=== PATIENT | female | born 1985 | race Caucasian/White ===

== ENCOUNTER 2016-12-20 15:24 | Observation (INO) ==
[2016-12-20] MEDS ORDERED: IOPAMIDOL 100 ML BOTTLE IJ ONE (15:25)
[2016-12-20] MEDS ORDERED: ONDANSETRON 4 MG/2 ML VIAL IV ONE (16:05)
[2016-12-20] MEDS ORDERED: KETOROLAC 30 MG/ML VIAL IV ONE (16:05)
[2016-12-20] MEDS ORDERED: LEVOFLOXACIN 750 MG/150 ML BAG IV ONE (16:05)
[2016-12-20] MEDS ORDERED: 0.9 % SODIUM CHLORIDE 1,000 ML IV ONE ×2 (16:05→17:54)
[2016-12-20 16:41] LABS: Basophils # (Auto) 0 K/mcL (0.0-0.3); Basophils % (Auto) 0 % (0.0-2.0); Eosinophils # (Auto) 0.4 K/mcL (0.0-0.7); Lymphocytes # (Auto) 0.3 K/mcL (1.5-4.8); Lymphocytes % (Auto) 4.1 % (15.5-49.0); Mean Cell Volume 77.5 fL (80.0-100.0); Mean Corpuscular Hemoglobin 26.3 pg (26.0-34.0); Monocytes # (Auto) 0.2 K/mcL (0.1-0.9); Monocytes % (Auto) 3.9 % (1.0-12.0); Platelet Count 175 K/mcL (140-440); Red Cell Distribution Width 15.1 % (11.5-14.5)
[2016-12-20 16:49] LABS: ALT/SGPT 17 U/l (0-40); Albumin 3.7 gm/dL (3.2-5.2); Albumin/Globulin Ratio 1.3 (1.0-2.3); Alkaline Phosphatase 77 U/L (39-117); Blood Urea Nitrogen 9 mg/dl (6-20); Lipase 17 U/L (7-60)
[2016-12-20 17:05] LABS: Appearance,Urine CLEAR; Bacteria,Urine MOD /hpf (0); Bilirubin,Urine NEG (NEG); Color,Urine STRAW; Glucose,Urine (UA) NEGATIVE (NEG); Leukocyte Esterase,Urine 75 /uL (NEG); Nitrate,Urine NEG (NEG); Protein,Urine NEG (NEG); Specific Gravity,Urine 1.004 (1.000-1.035); Urine Blood NEG mg/dL (<0.03); Urine RBC < 1 /hpf (0-1); Urine Squamous Epithelial Cell 2 /hpf (0-4); Urine WBC 1 /hpf (0-4); Urobilinogen,Urine NEG (NEG)
[2016-12-20] MEDS ORDERED: ACETAMINOPHEN 325 MG TABLET PO ONE (17:44)
--- NOTE | 2016-12-20 18:21 | Emergency Department Note ---
General Adult HPI - General Chief complaint: Weakness Stated complaint: Weakness, fever, chills, nausea Time Seen by Provider: 12/20/16 16:03 Source: patient Mode of arrival: ambulatory Limitations: no limitations - History of Present Illness HPI Narrative: 29-year-old female with a four-day history of nausea vomiting and fever and chills. No diarrhea. She was recently seen by Dr. Fabian and plan for surgery in 2 days however in getting that workup done it was noted she had a UTI and Dr. Fabian started her on antibiotics. Unclear which catabolic since is. No blood in her stool or vomit. Complaining of malaise and myalgias now. Also complaining of headaches. - Related Data Home Medications Medication Instructions Recorded Confirmed HYDROcodone/APAP 5/325MG [[place] 1 - 2 tab PO HS 12/16/16 12/16/16 5/325Mg] Previous Rx's Medication Instructions Recorded Etodolac [Lodine] 400 mg PO BIDP PRN #20 tablet 10/09/16 Allergies Allergy/AdvReac Type Severity Reaction Status Date / Time iodine Allergy Mild Rash Verified 12/20/16 14:28 Review of Systems All systems ED: reviewed and negative except as stated. Past Medical History - Past Medical History Attestation: Yes: The following information was validated with the patient. Medical history: Reports: no medical history Surgical history ED: Reports: appendectomy, orthopedic, other (knee and foot), other (duodenal atresia) PROJECT DEVELOPMENT COORDINATOR history: Reports: endometriosis - Social History smoking status: Never smoker Alcohol use: Reports: Unknown Drug use: Reports: unknown Physical Exam Overweight female. Febrile and mildly diaphoretic - mild distress. Normocephalic atraumatic. Conjunctiva clear sclerae white and anicteric. No nasal discharge or congestion. Oropharynx is pink and moist. Neck supple without lymphadenopathy or thyromegaly. Heart is regular rate and rhythm no murmurs appreciated. Lungs are clear to auscultation bilaterally without wheezes rales rhonchi or respiratory distress. Abdomen soft mildly diffusely tender but no point tenderness. No McBurney's point tenderness or Torres's sign. However some bilateral CVA tenderness. No pedal edema +2 radial pulse. - General Limitations: no limitations Course Vital Signs Temperature 101.7 F H 12/20/16 15:26 Pulse Rate 117 H 12/20/16 15:26 Respiratory Rate 18 12/20/16 15:26 Blood Pressure 126/82 12/20/16 15:26 Pulse Oximetry (%) 100 12/20/16 15:26 Temperature 102.1 F H 12/20/16 17:49 Pulse Rate 99 H 12/20/16 19:31 Respiratory Rate 24 12/20/16 19:31 Blood Pressure 120/67 12/20/16 19:31 Pulse Oximetry (%) 100 12/20/16 19:31 Medical Decision Making - Lab Data Lab results reviewed: Yes I reviewed the patient's lab results. Result diagrams: 12/20/16 16:05 12/20/16 16:05 Lab Results 12/20/16 12/20/16 12/20/16 Range/Units 16:05 16:05 16:05 WBC 6.3 (4.5-11.0) K/mcL RBC 4.70 (4.00-5.20) M/mcL Hgb 12.4 (12.0-15.0) g/dL Hct 36.4 (36.0-48.0) % POC Hct 35.0 L (36.0-48.0) % MCV 77.5 L (80.0-100.0) fL MCH 26.3 (26.0-34.0) pg MCHC 34.0 (31.0-36.0) g/dL RDW 15.1 H (11.5-14.5) % Plt Count 175 (140-440) K/mcL MPV 9.1 (7.4-10.4) fL Gran % 86.0 H (38.0-78.0) % Lymph % (Auto) 4.1 L (15.5-49.0) % [place] % (Auto) 3.9 (1.0-12.0) % Eos % (Auto) 6.0 (0.0-7.0) % Baso % (Auto) 0 (0.0-2.0) % Gran # 5.5 (1.8-8.0) K/mcL Lymph # 0.3 L (1.5-4.8) K/mcL [place] # 0.2 (0.1-0.9) K/mcL Eos # 0.4 (0.0-0.7) K/mcL Baso # 0 (0.0-0.3) K/mcL VBG Lactic Acid 1.8 (0.5-2.2) mmol/L POC Sodium 138 (133-145) mmol/L Sodium 131 L (133-145) mmol/L POC Potassium 3.8 (3.3-5.1) mmol/L Potassium 3.9 (3.3-5.1) mmol/L POC Chloride 97 (96-108) mmol/L Chloride 96 (96-108) mmol/L Carbon Dioxide 20 L (22-30) mmol/L POC Total CO2 20 L (22-30) mmol/L Anion Gap 15.0 (8-16) POC BUN 7 (6-20) mg/dl BUN 9 (6-20) mg/dl Creatinine 0.9 (0.6-1.1) mg/dl POC Creatinine 0.9 (0.6-1.1) mg/dl GFR Calculation 85 Glucose 107 H (70-105) mg/dL POC Glucose 95 (70-105) mg/dL Calcium 8.6 (8.6-10.4) mg/dl POC WB Ioniz Calcium 1.10 L (1.16-1.32) mmol/L Total Bilirubin 0.3 (0.0-1.0) mg/dL AST 17 (0-37) U/l ALT 17 (0-40) U/l Alkaline Phosphatase 77 (39-117) U/L Total Protein 6.6 (5.9-8.4) gm/dL Albumin 3.7 (3.2-5.2) gm/dL Globulin 2.9 (2.2-3.7) gm/dL Albumin/Globulin Ratio 1.3 (1.0-2.3) Lipase 17 (7-60) U/L Urine Color Urine Appearance Urine pH (5.0-9.0) Ur Specific Lee (1.000-1.035) Urine Protein (NEG) mg/dL Urine Glucose (UA) (NEG) mg/dL Urine Ketones (NEG) mg/dL Urine Occult Blood (<0.03) mg/dL Urine Nitrate (NEG) Urine Bilirubin (NEG) mg/dL Urine Urobilinogen (NEG) mg/dL Ur Leukocyte Esterase (NEG) /uL Urine RBC (0-1) /hpf Urine WBC (0-4) /hpf Ur Squamous Epith Cells (0-4) /hpf Urine Bacteria (0) /hpf Ur Culture Indicated? 12/20/16 Range/Units 16:26 WBC (4.5-11.0) K/mcL RBC (4.00-5.20) M/mcL Hgb (12.0-15.0) g/dL Hct (36.0-48.0) % POC Hct (36.0-48.0) % MCV (80.0-100.0) fL MCH (26.0-34.0) pg MCHC (31.0-36.0) g/dL RDW (11.5-14.5) % Plt Count (140-440) K/mcL MPV (7.4-10.4) fL Gran % (38.0-78.0) % Lymph % (Auto) (15.5-49.0) % [place] % (Auto) (1.0-12.0) % Eos % (Auto) (0.0-7.0) % Baso % (Auto) (0.0-2.0) % Gran # (1.8-8.0) K/mcL Lymph # (1.5-4.8) K/mcL [place] # (0.1-0.9) K/mcL Eos # (0.0-0.7) K/mcL Baso # (0.0-0.3) K/mcL VBG Lactic Acid (0.5-2.2) mmol/L POC Sodium (133-145) mmol/L Sodium (133-145) mmol/L POC Potassium (3.3-5.1) mmol/L Potassium (3.3-5.1) mmol/L POC Chloride (96-108) mmol/L Chloride (96-108) mmol/L Carbon Dioxide (22-30) mmol/L POC Total CO2 (22-30) mmol/L Anion Gap (8-16) POC BUN (6-20) mg/dl BUN (6-20) mg/dl Creatinine (0.6-1.1) mg/dl POC Creatinine (0.6-1.1) mg/dl GFR Calculation Glucose (70-105) mg/dL POC Glucose (70-105) mg/dL Calcium (8.6-10.4) mg/dl POC WB Ioniz Calcium (1.16-1.32) mmol/L Total Bilirubin (0.0-1.0) mg/dL AST (0-37) U/l ALT (0-40) U/l Alkaline Phosphatase (39-117) U/L Total Protein (5.9-8.4) gm/dL Albumin (3.2-5.2) gm/dL Globulin (2.2-3.7) gm/dL Albumin/Globulin Ratio (1.0-2.3) Lipase (7-60) U/L Urine Color Straw Urine Appearance Clear Urine pH 6.0 (5.0-9.0) Ur Specific Lee 1.004 (1.000-1.035) Urine Protein Neg (NEG) mg/dL Urine Glucose (UA) Negative (NEG) mg/dL Urine Ketones Neg (NEG) mg/dL Urine Occult Blood Neg (<0.03) mg/dL Urine Nitrate Neg (NEG) Urine Bilirubin Neg (NEG) mg/dL Urine Urobilinogen Neg (NEG) mg/dL Ur Leukocyte Esterase 75 A (NEG) /uL Urine RBC < 1 (0-1) /hpf Urine WBC 1 (0-4) /hpf Ur Squamous Epith Cells 2 (0-4) /hpf Urine Bacteria Mod A (0) /hpf Ur Culture Indicated? Yes - Radiology Data Radiology results reviewed: Yes I reviewed the patient's radiology results. CT scan of the abdomen and pelvis with contrast is read as normal by [facility] Disposition Clinical Impression: Pyelonephritis Summary: Clinically patient has pyelonephritis with classic findings of fever, evidence of UTI and back pain. However CT scan and laboratory relatively benign. Differential diagnosis includes fever from occult infection as well, but lungs are clear and white count is normal In light of the fact that she is unable to keep anything down, I do think she needs to come in for IV fluid rehydration and IV antibiotics- she has clearly already failed outpatient antibiotic therapy. I discussed her situation with Dr. Arango, she agreed to accept the patient for observation Disposition: Xfer As Outpt/Obs ([facility]) Condition: Fair Referrals: Ken Calderon MD [Primary Care Provider] - Galina Arango MD [Physician] -
[2016-12-20] MEDS: HYDROmorphone 2 MG/ML SYRINGE IV PRN ×3 (18:41→21:51)
[2016-12-20] MEDS ORDERED: ONDANSETRON 4 MG/2 ML VIAL IV PRN (19:55)
[2016-12-20] MEDS ORDERED: ACETAMINOPHEN 325 MG TABLET PO PRN (19:55)
[2016-12-20] MEDS ORDERED: IBUPROFEN 600 MG TABLET PO PRN (19:55)
--- NOTE | 2016-12-20 22:25 | Internal Med History&Physical ---
Medical - H&P: [facility] Patient information: Note initiated : 12/20/16 at 10:20 pm Service Date, if different from initiated Date: [] Patient: Marcy Ames 31 y/o F admitted on 12/20/16 for Weakness, fever, chills, nausea. 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 She has had some issues with torn ligaments in her knee and is scheduled to have repair with Dr. Fabian on Thursday. She had preoperative lab work done and was told she had a urinary tract infection and was prescribed a three-day course of Bactrim. She did not notice any urinary tract symptoms prior to this. 3 days prior to admission, she began her Bactrim course and noted that she had dizziness, nausea and vomiting after taking her Bactrim. She had subjective fevers and chills. She was also taking an [id number] homeopathic medication at home. Today she had rigors and worsening back abdominal pain and presented to the ER. Her vomiting has resolved. She denies any history of UTI or kidney problems. Review of systems: Please see the HPI. Otherwise a comprehensive review of systems is negative or noncontributory to the chief complaint. 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 I do not see a full list in the current EMR. 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 She and her daughter and parents all live in one home. She is a full code and her mother, Mariah John, is her surrogate medical decision maker. She does not have a primary care physician. She is a never smoker. She does not use alcohol or recreational drugs. Medical - H&P: Meds Home Medications Medication Instructions Recorded Confirmed Type Etodolac [Lodine] 400 mg PO BIDP PRN #20 tablet 10/09/16 12/20/16 Rx Allergies Allergy/AdvReac Type Severity Reaction Status Date / Time iodine Allergy Mild Rash Verified 12/20/16 14:28 Medical - H&P: Exam - Constitutional Vitals: Temp Pulse Resp BP Pulse Ox 99.6 F 102 H 17 130/55 100 12/20/16 20:08 12/20/16 20:08 12/20/16 20:08 12/20/16 20:08 12/20/16 20:08 General appearance: no acute distress Exam: flushed - Head Head exam: Present: atraumatic, normocephalic - Eye Eye exam: Present: EOMI, PERRL. Absent: conjunctival injection, scleral icterus - ENT ENT exam: Present: mucous membranes dry, normal oropharynx - Neck Neck exam: Present: full ROM. Absent: lymphadenopathy, meningismus, thyromegaly - Respiratory Respiratory exam: Present: CTAB. Absent: accessory muscle use - Cardiovascular Cardiovascular exam: Present: normal rate and rhythm. Absent: systolic murmur - GI/Abdominal GI/Abdominal exam: Present: normal bowel sounds, soft Additional comments: diffusely tender throughout without peritoneal signs - Rectal Rectal exam: Present: deferred - Extremities Exam Extremities exam: Absent: pedal edema Additional comments: no clubbing or cyanosis - Back Exam Additional comments: She has pain everywhere I touch her back even with the slightest touch. It is not localized to the CVA region. - Neurological Exam Neurological exam: Present: alert, CN II-XII intact, oriented X3. Absent: motor sensory deficit - Psychiatric Psychiatric exam: Present: normal affect, normal mood - Skin Skin exam: Present: dry, warm Medical - H&P: Reslt - Labs CBC & Chem 7: 12/20/16 16:05 12/20/16 16:05 Medical - H&P: A/P - Narrative A/P Narrative: * Sepsis likely secondary to pyelonephritis -likely has Bactrim-resistant pathogen; no pyuria on UA may represent partial treatment. Low threshold for considering other sources of sepsis. Consider gastroenteritis. -BC not drawn prior to Abx. Will not draw now. -lactate nl on admission; CT scan not read but no e/o obstruction or sig inflammatory stranding by my read -IVF. s/p Levaquin in ED. Change to CTX. F/U cx * Abdominal and flank pain/ n/v -PRN IV Dilaudid and po oxycodone; PRN Tylenol and ibuprofen -PRN antiemetics -Has h/o multiple ED visits for abdominal pain. Current pain does not seem to be entirely related to pyelo. * Metabolic acidosis, mild. Monitor on AM labs. * Hyponatremia, mild. Trend on labs * DVT ppx: enoxaparin * Dispo: 1-2 days pending cx results and sx mmgt.
[2016-12-20] MEDS: 0.9 % SODIUM CHLORIDE 10 ML SYRINGE IV SCH (23:00)
[2016-12-21] MEDS: HYDROmorphone 2 MG/ML SYRINGE IV PRN ×8 (01:41→21:50)
[2016-12-21] MEDS: 0.9 % SODIUM CHLORIDE 10 ML SYRINGE IV SCH ×3 (05:42→21:50)
[2016-12-21 06:46] LABS: Basophils # (Auto) 0 K/mcL (0.0-0.3); Basophils % (Auto) 0.1 % (0.0-2.0); Eosinophils # (Auto) 0.3 K/mcL (0.0-0.7); Eosinophils % (Auto) 8.1 % (0.0-7.0); Granulocytes % (Auto) 72.5 % (38.0-78.0); Lymphocytes # (Auto) 0.5 K/mcL (1.5-4.8); Lymphocytes % (Auto) 11.9 % (15.5-49.0); Mean Cell Volume 77.8 fL (80.0-100.0); Mean Corpuscular HGB Conc 34.1 g/dL (31.0-36.0); Mean Corpuscular Hemoglobin 26.5 pg (26.0-34.0); Monocytes # (Auto) 0.3 K/mcL (0.1-0.9); Monocytes % (Auto) 7.4 % (1.0-12.0); Platelet Count 145 K/mcL (140-440); RBC 4.36 M/mcL (4.00-5.20)
[2016-12-21] MEDS ORDERED: PROMETHAZINE 50 MG/ML AMPUL IM PRN (07:14)
[2016-12-21 07:32] LABS: Blood Urea Nitrogen 7 mg/dl (6-20)
[2016-12-21] MEDS ORDERED: PROMETHAZINE 25 MG TABLET PO PRN (07:36)
[2016-12-21] MEDS: oxyCODONE HCL 5 MG TABLET PO PRN ×3 (08:36→19:05)
[2016-12-21] MEDS: ENOXAPARIN 40 MG/0.4 ML SYRINGE SQ SCH (08:37)
[2016-12-21] MEDS: cefTRIAXone 1 GM in DEXTROSE 5% IN WATER 50 ML IV SCH (09:16)
--- NOTE | 2016-12-21 10:13 | Cat Scan Report ---
CLINICAL INFORMATION: Weakness fever and chills COMPARISON: 06/25/[address] TECHNIQUE: Following enteric contrast, 80 cc of Isovue-300 were injected intravenously, and 60 seconds later, 2.5 mm helical slices were obtained from the mid heart through the subtrochanteric regions. Following reconstruction, 2.5 mm sagittal, coronal and axial reformatted images were processed and reviewed at bone, lung and soft tissue windows. Five minutes later, 5 mm helical slices were obtained from the mid heart through the kidneys and viewed at soft tissue windows. FINDINGS: Lung bases show no abnormality - no effusion. The visualized heart is normal. Images should the abdomen show minimal fatty change within the liver but is stable. The gallbladder is surgically absent. Intrahepatic and common bile ducts are normal in caliber - CBD is 5 mm. Both kidneys, adrenal glands, pancreas and aorta including aortic branches are normal in size configuration and attenuation without focal lesion. Mild splenomegaly is new from the previous study (16 x 10 x 6.6 cm.). There is no adenopathy, free air or free fluid. The stomach, small and large bowel in the region of the appendix are normal. Images should the pelvis show anteflexed uterus is normal in size - 7 x 5 cm. There is a 2.3 cm simple cyst in left ovary. Right ovary is normal. Bone windows show no osseous abnormality. IMPRESSION: Mild splenomegaly - new from a 2015 CT . The differential diagnosis for this finding is extensive and includes: infection including atypical organisms, collagen vascular diseases such as sarcoidosis, rheumatoid arthritis, lupus and hematologic diseases such as leukemia, myelofibrosis, lymphoma and hemolytic anemia. Correlation with CBC, reticulocyte count, prior studies and inflammatory markers such as sedimentation rate/C-reactive protein may be of value. Interpreted and Authenticated by: Massimo Bhardwaj 12/21/16
--- NOTE | 2016-12-21 12:02 | Internal Med Progress Note ---
Medical - PN: Subj Patient information: Note initiated : 12/21/16 at 11:59 am Service Date, if different from initiated Date: [] Patient: Marcy Ames 31 y/o F admitted on 12/20/16 for Weakness, fever, chills, nausea. 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 She received IV Levaquin in ED and is being treated now with IV CTX. She has required IV Dilaudid and IV Zofran for her symptoms. She was schedule to have knee surgery with Dr. Page on 12/22. 12/21: Still feels nauseated. Has been needing IV Dilaudid q2 all through the night. Sleeping comfortably when I see her; complains of pain as soon as I wake her. No further fevers. Pertinent ROS: no fever or cough - Constitutional Vitals: Vital Signs Temp Pulse Resp BP Pulse Ox 98.5 F 99 H 16 122/81 100 12/21/16 07:23 12/21/16 03:36 12/21/16 07:23 12/21/16 07:23 12/21/16 07:23 Period Temp Pulse Resp BP Sys/Rodriguez Pulse Ox Last 24 Hr 97.9 F-98.5 F 94-99 14-16 121-133/79-92 98-100 Intake and Output 12/20/16 12/21/16 12/21/16 21:59 05:59 13:59 Intake Total 920 / 2070 150 / 150 850 / 850 Output Total 210 / 210 900 / 900 625 / 625 Balance 710 / 1860 -750 / -750 225 / 225 Weight 201 lb 8 oz Intake & Output: Intake & Output 12/20/16 12/21/16 12/21/16 21:59 05:59 13:59 Intake Total 920 / 2070 150 / 150 850 / 850 Output Total 210 / 210 900 / 900 625 / 625 Balance 710 / 1860 -750 / -750 225 / 225 Weight 201 lb 8 oz Intake: IV 50 / 50 Rocephin 1 gm In Dextrose 50 / 50 5% in Water 50 ml @ 100 mls/hr IV Q24H [facility] Rx#: [id number] Oral 920 / 920 150 / 150 800 / 800 Output: Void Amount 60 / 60 900 / 900 625 / 625 # of times incontinent of 150 / 150 urine Other: Meal Take-out [place] food 1/2 saltine cracker Feeding Ability Independent # Voids 1 General appearance: no acute distress Exam: appears fatigued - Respiratory Respiratory exam: Present: CTAB. Absent: respiratory distress - Cardiovascular Cardiovascular exam: Present: normal rate and rhythm. Absent: systolic murmur - GI/Abdominal GI/Abdominal exam: Present: soft, tenderness. Absent: distended Additional comments: diffuse tenderness to light touch throughout. No rigidity - Extremities Exam Extremities exam: Absent: pedal edema - Neurological Exam Neurological exam: Present: alert, oriented X3 - Skin Skin exam: Present: dry, warm Medical - PN: Obj Da - Labs CBC & Chem 7: 12/21/16 05:35 12/21/16 05:35 Labs: Abnormal Lab Results 12/21/16 12/21/16 05:35 05:35 WBC 3.8 L Hgb 11.6 L Hct 33.9 L MCV 77.8 L RDW 15.0 H Lymph % (Auto) 11.9 L Eos % (Auto) 8.1 H Lymph # 0.5 L Calcium 8.1 L Meds: Medications Acetaminophen (Tylenol) 650 mg PO Q6HP PRN PRN Reason: PAIN/FEVER > 101 Enoxaparin Sodium (Lovenox) 40 mg SQ DAILY [facility] Last Admin: 12/21/16 08:37 Dose: 40 mg Hydromorphone HCl (Dilaudid) 1 mg IV Q2HP PRN PRN Reason: Pain Last Admin: 12/21/16 10:19 Dose: 1 mg Ceftriaxone Sodium 1 gm/ (Dextrose) 50 mls @ 100 mls/hr IV Q24H [facility] Last Infusion: 12/21/16 10:09 Dose: Infused Ibuprofen (Motrin) 600 mg PO QIDP PRN PRN Reason: PAIN/FEVER > 101 Ondansetron HCl (Zofran) 4 mg IV Q6HP PRN PRN Reason: Nausea And Vomiting Oxycodone HCl (Roxicodone) 5 mg PO Q4HP PRN PRN Reason: Pain Last Admin: 12/21/16 08:36 Dose: 5 mg Promethazine HCl (Phenergan) 12.5 - 25 mg PO Q6HP PRN PRN Reason: Nausea And Vomiting Sodium Chloride (Saline Flush) 10 ml IV Q8 [facility] Last Admin: 12/21/16 05:42 Dose: 10 ml Medical - PN: A/P - Time Spent With Patient Total time spent is greater than 50% in coordination of care (as documented) at patient's floor/unit and/or counseling patient: 25 - 35 minutes - Narrative A/P Narrative: * Sepsis likely secondary to pyelonephritis -likely has Bactrim-resistant pathogen; no pyuria on UA may represent partial treatment. Low threshold for considering other sources of sepsis. Consider gastroenteritis. -F/U BC -lactate nl on admission; CT scan not read but no e/o obstruction or sig inflammatory stranding by my read -IVF. s/p Levaquin in ED. Changed to CTX. F/U cx * Abdominal and flank pain/ n/v -PRN IV Dilaudid and po oxycodone; PRN Tylenol and ibuprofen -PRN antiemetics -Has h/o multiple ED visits for abdominal pain. Current pain does not seem to be entirely related to pyelo. * Metabolic acidosis, mild. Monitor on AM labs. * Hyponatremia, mild. Trend on labs * DVT ppx: enoxaparin * Dispo: 1-2 days pending cx results and sx mmgt. Medical - PN: Qual - VTE Deep Vein Thrombosis/Pulmonary Embolism Present on Admission: No
[2016-12-22] MEDS: oxyCODONE HCL 5 MG TABLET PO PRN ×3 (00:21→08:00)
[2016-12-22] MEDS: HYDROmorphone 2 MG/ML SYRINGE IV PRN (00:22)
[2016-12-22] MEDS: 0.9 % SODIUM CHLORIDE 10 ML SYRINGE IV SCH (06:00)
[2016-12-22 06:22] LABS: Basophils # (Auto) 0 K/mcL (0.0-0.3); Basophils % (Auto) 0.4 % (0.0-2.0); Eosinophils # (Auto) 0.4 K/mcL (0.0-0.7); Eosinophils % (Auto) 9.4 % (0.0-7.0); Granulocytes % (Auto) 39.7 % (38.0-78.0); Lymphocytes # (Auto) 1.5 K/mcL (1.5-4.8); Lymphocytes % (Auto) 40.3 % (15.5-49.0); Mean Cell Volume 77.7 fL (80.0-100.0); Mean Corpuscular HGB Conc 33.9 g/dL (31.0-36.0); Mean Corpuscular Hemoglobin 26.4 pg (26.0-34.0); Monocytes # (Auto) 0.4 K/mcL (0.1-0.9); Monocytes % (Auto) 10.2 % (1.0-12.0); Platelet Count 149 K/mcL (140-440); RBC 4.39 M/mcL (4.00-5.20); Red Cell Distribution Width 15.1 % (11.5-14.5)
[2016-12-22 06:42] LABS: Blood Urea Nitrogen 8 mg/dl (6-20)
[2016-12-22] MEDS: cefTRIAXone 1 GM in DEXTROSE 5% IN WATER 50 ML IV SCH (08:25)
[2016-12-22] MEDS: ENOXAPARIN 40 MG/0.4 ML SYRINGE SQ SCH (08:26)
--- NOTE | 2016-12-22 10:51 | Discharge Summary ---
Medical - DS: Prov Patient information: Note initiated : 12/22/16 at 10:49 am Service Date, if different from initiated Date: [] Patient: Marcy Amse 31 y/o F admitted on 12/20/16 for Weakness, Fever, Chills, Nausea/Pyelonephritis,UTI. Chief Complaint: [] Date of admission: 12/20/16 20:13 Discharge date: 12/22/16 Primary care physician: [f_Reg Prim Care Provider] Medical - DS: Meds - Discharge Medications Prescriptions: Cefdinir 300 mg PO BID #8 capsule HYDROcodone/ACETAMINOPHEN [Hydrocodon-Acetaminophen 5-325] 1 each PO Q8HP PRN # 15 tablet PRN Reason: Pain Active and Home Medications: Home Medications Etodolac [Lodine] 400 mg PO BIDP PRN #20 tablet 10/09/16 [Rx Confirmed 12/20/16 Last Taken Unknown] Cefdinir 300 mg PO BID #8 capsule 12/22/16 [Rx Last Taken Unknown] HYDROcodone/ACETAMINOPHEN [Hydrocodon-Acetaminophen 5-325] 1 each PO Q8HP PRN # 15 tablet 12/22/16 [Rx Last Taken Unknown] Medical - DS: Hosp Hospital course: Discharge diagnosis * Sepsis likely secondary to pyelonephritis- clinically resolved. continue additional 4 days oral third-generation cephalosporin * Abdominal and flank pain/ n/v- secondary to above. Clinically resolved * Metabolic acidosis. clinically resolved * Hyponatremia,- normalized at 140 [facility] Mr. 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 She received IV Levaquin in ED and is being treated now with IV CTX. She has required IV Dilaudid and IV Zofran for her symptoms. She was schedule to have knee surgery with Dr. Page on 12/22. 12/21: Still feels nauseated. Has been needing IV Dilaudid q2 all through the night. Sleeping comfortably when I see her; complains of pain as soon as I wake her. No further fevers. 12/22- patient seen in room. Reviewed labs and CT imaging. Asymptomatic. No overnight fever chills nausea vomiting or concerns per staff. urine culture nonpathogenic gerardo. Mild organomegaly. Recommend follow-up with primary care physician in 7-10 days after completion of antibiotics. Discharge diagnosis: . - Time Spent with Patient Total time spent providing and/or coordinating discharge services: Greater than 30 minutes Medical - DS: Exam - Constitutional Vitals: Vital Signs Temp Pulse Resp BP Pulse Ox 12/22/16 07:38 97.1 F L 60 14 137/93 90 12/22/16 04:15 98.8 F 64 16 140/94 97 12/21/16 23:19 97.6 F 80 14 120/78 98 12/21/16 19:47 98.0 F 85 16 123/87 97 12/21/16 16:17 97.6 F 82 14 104/72 98 12/21/16 12:00 97.4 F L 108/74 98 Intake and Output 12/21/16 12/22/16 12/22/16 21:59 05:59 13:59 Intake Total 980 / 980 740 / 740 Output Total 1550 / 1550 750 / 750 Balance -570 / -570 -10 / -10 Intake: Oral 980 / 980 740 / 740 Output: Void Amount 1550 / 1550 750 / 750 Other: Meal Dinner Percent of Meal Consumed 75% Feeding Ability Independent # Voids 1 # Bowel Movements 1 Weight 204 lb General appearance: cooperative, obese Additional comments: alert oriented nonlabored breathing Nondistressed Medical - DS: Data Labs on day of discharge: Labs from last 24 hours 12/22/16 12/22/16 05:15 05:15 WBC 3.8 L RBC 4.39 Hgb 11.6 L Hct 34.1 L MCV 77.7 L MCH 26.4 MCHC 33.9 RDW 15.1 H Plt Count 149 MPV 8.6 Gran % 39.7 Lymph % (Auto) 40.3 [place] % (Auto) 10.2 Eos % (Auto) 9.4 H Baso % (Auto) 0.4 Gran # 1.5 L Lymph # 1.5 [place] # 0.4 Eos # 0.4 Baso # 0 Sodium 140 Potassium 3.8 Chloride 104 Carbon Dioxide 23 Anion Gap 13.0 BUN 8 Creatinine 0.6 GFR Calculation 121 Glucose 91 Calcium 8.4 L Medical - DS: A/P - Patient/Caregiver Discharge Instructions Activity: increase activity as tolerated, resume usual activities as tolerated Diet: Regular Diet Additional Instructions: continue antibiotics for additional 4 days follow-up PCP in 7-10 days for review of mild splenomegaly follow-up orthopedics in 2-4 weeks for knee evaluation Prescriptions: Cefdinir 300 mg PO BID #8 capsule HYDROcodone/ACETAMINOPHEN [Hydrocodon-Acetaminophen 5-325] 1 each PO Q8HP PRN # 15 tablet PRN Reason: Pain - Follow up Plan Follow up with: Ken Calderon MD [Primary Care Provider] - Disposition: Home, Self-Care Prognosis: Fair Rehab Potential: Fair I certify that the patient requires SNF services: No Overall status at discharge: patient is progressing back to baseline Medical - DS: Qual - VTE Deep Vein Thrombosis/Pulmonary Embolism Present on Admission: No
== END 2016-12-22 13:20 | disposition home or self-care (01) ==
LOC: MEDSUR 15:24 → ED 15:24 → MEDSUR 20:14
PROVIDERS: ADMIT Internal Medicine; ATTEND Internal Medicine